=== PATIENT | female | born 1940 | race Caucasian/White ===

== ENCOUNTER → 2017-09-06 | Outpatient (CLI) | payer OTHER ==
[~2017-09-06] VITALS: Ht 157.5 cm; Wt 83.5 kg
[~2017-09-06] MED LIST: AMOXIL 875 MG875 M1 PO; ASPIRIN81 M2 PO; ATENOLOL 25 MG25 M1 PO; ATENOLOL 50 MG50 M1 PO; CATAPRES-TTS 10.1 MG PO; COLACE 100 MG100 MG PO; COLAZAL750 M1 PO; KEFLEX500 M1 PO; LISINOPRIL10 MG PO; PAXIL20 MG PO; PROTONIX 20 MG20 M1 PO; VALIUM PO; VITAMIN D 5050000 I1 PO
[2017-09-06 13:09] VITALS: BP 160/72
[2017-09-06 13:48] LABS: HEMATOCRIT 44.9 % (37.0-47.0); HEMOGLOBIN 14.9 gm/dL (12.0-15.0); MCH 30.1 pg (26.0-34.0); MCHC 33.2 g/dL (28.0-37.0); MCV 90.9 fL (80.0-100.0); MPV 8.6 fl. (7.2-11.1); RBC 4.95 mil/uL (4.20-5.00); RDW-CV 14.2 % (10.5-14.5); WBC 6.3 thou/uL (4.0-11.0)
[2017-09-06 13:55] LABS: APTT 26.6 Seconds (25.0-31.3)
--- NOTE | 2017-09-06 14:10 | EKG ---
[place] [address] ELECTROCARDIOGRAM REPORT Name: SACHABHAVIKUbaldo MORRIS Room: [facility]#: [id number] Admission: 09/06/17 Attend Phys: Adam Rowe MD Discharge: Date of : 36 Report #: [id number] THIS REPORT FOR: //name// [facility] Test Date: 2017-09-06 Test Time: 13:00:16 Pat Name: LONNIE GONCALVES Department: Room: Gender: F Composite Technician: : 1940 Requested By: Adam Rowe Order Number: [id number] Jose Maria MD: Dillan Santos Measurements Intervals Burt Rate: 69 P: 53 OR: 191 QRS: 74 QRSD: 120 T: 16 QT: 400 QTc: 429 Interpretive Statements Sinus rhythm RBBB Compared to ECG 03/27/2012 08:34:22 no change Electronically Signed On 09-06-2017 14:10:33 CDT by Dillan Santos [email or web address] <ELECTRONICALLY SIGNED> By: Dillan Santos MD, [facility] 09/06/17 1410 1300 [facility] Dillan Santos MD, FACC /EPI
[2017-09-06 14:26] LABS: CALCIUM 9.7 mg/dL (8.5-10.1); CREATININE 0.7 mg/dL (0.6-1.3); POTASSIUM 4.1 mmol/L (3.5-5.1)
[2017-09-06 15:00] VITALS: BP 138/70
[2017-09-06 15:09] VITALS: BP 163/73
[2017-09-06 15:27] VITALS: BP 138/70
[2017-09-06 15:56] VITALS: BP 147/69
--- NOTE | 2017-09-12 16:57 | CARD ---
[address] [address] CARDIAC CATH REPORT Name: SACHABHAVIKUbaldo CACERES Room: [facility] NILSA Haile#: [id number] Admission: 09/06/17 Attend Phys: Adam Rowe MD Discharge: Date of : 36 Report #: [id number] THIS REPORT FOR: //name// ADDENDUM APPROVED REPORT Study performed: 09/06/2017 13:13:02 Patient Status: Out-Patient Room #: Exam: Insertion of Dual Chamber Permanent Pacemaker Indications: sinus node dysfunction The patient is a 77 year-old female with a history of sinus node dysfunction. Implanted Devices: Biotronik Eluna 8 DRT proMRI, model #749474, serial #[id number] dual-chamber pulse generator Biotronik Solia S 45, model #329907, serial #[id number] atrial lead Biotronik Solia S 53, model #929694, serial #[id number] ventricular lead Procedure The patient underwent informed consent. We discussed the details of the procedure including the risks, which include, but not limited to bleeding, infection, vascular damage, cardiac perforation, and pneumothorax. After informed consent was obtained the area of the left chest was prepped and draped in sterile fashion. Local anesthesia was achieved with 1% lidocaine. Next after an initial incision was made a device pocket was formed over the left pectoralis muscle using electrocautery and blunt dissection. The left subclavian vein was then accessed using a micropuncture kit. Ultimately a safety J guidewire was advanced to the area of the right atrium under fluoroscopic guidance. The guidewire was secured externally with a Yelena forcep. The micropuncture kit was utilized a second time to access the left subclavian vein and a second safety J guidewire ultimately advanced to the area of the right atrium under fluoroscopic guidance. A 7 [place] tear-away introducer was advanced over the free guidewire. The dilator and guidewire were removed and a ventricular lead advanced to a secure position within the right ventricle under fluoroscopic guidance. The lead was actively fixed. Thresholds were checked and deemed to be satisfactory. Pacing impedances were adequate. There was no diaphragmatic stimulation with maximum output pacing. The tear-away introducer was then removed. Next a second 7 [place] tear-away introducer [place] [address] CARDIAC CATH REPORT Name: LONNIE GONCALVES Room: [facility]#: [id number] Admission: 09/06/17 Attend Phys: Adam Rowe MD Discharge: Date of : 36 Report #: [id number] remaining guidewire. An atrial lead was advanced to a secure position within the right atrial appendage. The lead was actively fixed. Thresholds were checked and deemed to be satisfactory. Pacing impedances were adequate. There was no phrenic nerve stimulation with maximum output pacing. The tear-away introducer was then removed. After adequate slack was assured and the atrial and ventricular leads the leads were then secured within the device pocket using the designated cuffs and interrupted stitches of 2-0 silk suture. The pacemaker pocket was then flushed with antibiotic solution. A dual-chamber pacing generator was attached to the atrial and ventricular lead. The generator and redundant lead were then placed within the device pocket. The deep tissues were then closed using interrupted stitches of 2-0 Vicryl. The skin incision was then closed with a single subcuticular stitch of 4-0 Vicryl. Several Steri-Strips were placed across the incision. A sterile Telfa dressing was then covered with a Tegaderm. The patient tolerated the procedure well without complication. Electrode Parameters P Wave: 1.0 mV R Wave: 6.40 mV Atrial Threshold: 0.8 V at 0.40 ms Ventricular Threshold: 1.4 V at 0.40 ms Atrial Resistance: 487 ohms Ventricular Resistance: 604 ohms Mode: DDD/CLS Lower rate: 60 bpm Upper tracking rate: 130 bpm Mode switch rate: 160 bpm Complications The patient tolerated the procedure well and there were no complications associated with the procedure. Conclusion 1. Sinus node dysfunction 2. Successful placement of a dual-chamber pacemaker with atrial and ventricular lead placement Recommendations 1. Follow-up site check in one week 2. Follow-up pacemaker interrogation one month <ELECTRONICALLY SIGNED> By: Adam Rowe MD, FACC 09/12/17 1657 56 165Michaedebbie Rowe MD, FACC /INF
== END | disposition home or self-care (01) ==
LOC: M.CL 11:29
PROVIDERS: Internal Medicine Cardiovascular Disease
DX: I49.5 Sick sinus syndrome (principal); I10 Essential (primary) hypertension; E78.5 Hyperlipidemia, unspecified; F41.9 Anxiety disorder, unspecified; Z87.19 Personal history of other diseases of the digestive system; Z98.890 Other specified postprocedural states; Z88.2 Allergy status to sulfonamides; Z79.899 Other long term (current) drug therapy; Z79.82 Long term (current) use of aspirin; Z79.01 Long term (current) use of anticoagulants; Z86.73 Personal history of transient ischemic attack (TIA), and cerebral infarction without residual deficits